=== PATIENT | male | born 1990 | race Hispanic/Latino ===

== ENCOUNTER 2020-10-17 20:37 | Emergency (ER) | payer MEDICAID, SELFPAY ==
[2020-10-18 16:41] LABS: SARS-CoV-2 PCR by NAA Not Detected (NotDetected)
== END 2020-10-17 21:32 | disposition home or self-care (01) ==
LOC: MADERS 20:37
DX: R06.82 Tachypnea, not elsewhere classified (principal); R09.02 Hypoxemia; R50.9 Fever, unspecified; R51.9 Headache, unspecified; R11.0 Nausea; M79.10 Myalgia, unspecified site; F17.210 Nicotine dependence, cigarettes, uncomplicated
CPT/HCPCS: 99283; U0003; U0005